=== PATIENT | female | born 1995 ===

== ENCOUNTER 2021-06-13 16:31 | Emergency (ER) | payer BC, OTHER ==
[2021-06-13] MEDS ORDERED: Lorazepam 2 MG/ML VIAL ONE (17:03)
== END 2021-06-13 17:45 | disposition home or self-care (01) ==
LOC: NAV ERS 16:31
DX: R56.9 Unspecified convulsions (principal); F41.9 Anxiety disorder, unspecified; F17.210 Nicotine dependence, cigarettes, uncomplicated; Z79.899 Other long term (current) drug therapy
CPT/HCPCS: 99284; J2060